=== PATIENT | male | born 1985 | race Caucasian/White ===

== ENCOUNTER 2018-09-26 07:57 | Emergency (ER) | payer SELFPAY ==
[~2018-09-26] VITALS: Wt 90.0 kg
[2018-09-26 08:00] VITALS: BP 141/87; PULSE 88; RESP 18
[2018-09-26] MEDS ORDERED: NAPR-985 PO (08:45)
[2018-09-26] MEDS ORDERED: SALI414L TOP (08:45)
--- NOTE | 2018-09-26 11:27 | ERD ---
ER Documentation Chief Complaint Chief Complaint right index wart/pain,cwp x 2 weeks HPI 33-year-old female presenting with wart pain. Patient is also complaining of chest wall pain. Patient has chest wall pain for 2 weeks. Patient states that it is constant. patient states that he has been using [id number] freeze medication on wart with no alleviation. He started using it yesterday. The wart has been there for over a year. He denies any pleuritic chest pain. Denies other medical problems. NKDA. Surgical history denies. Social history smokes pack a day. ROS All systems reviewed and are negative except as per history of present illness. Medications Home Meds Active Scripts Naproxen* (Naprosyn*) 500 Mg Tablet, 500 MG PO BID PRN for PAIN AND/OR INFLAM MATION, #30 TAB Prov:ALDAIR YOST PA-C 09/26/18 Salicylic Acid (Salicylic Acid) 414 Ml Lotion, 1 APPLIC TOP DAILY for 84 Days, BOTTLE Apply to affected area Prov:ALDAIR YOST PA-C 09/26/18 Allergies Allergies: Coded Allergies: No Known Allergy (Unverified , 09/16/11) PMhx/Soc Medical and Surgical Hx: pt denies Medical Hx, pt denies Surgical Hx History of Surgery: No Anesthesia Reaction: No Hx Neurological Disorder: No Hx Respiratory Disorders: No Hx Cardiac Disorders: No Hx Psychiatric Problems: No Hx Miscellaneous Medical Probl: No Hx Alcohol Use: Yes Hx Substance Use: No Hx Tobacco Use: Yes Smoking Status: Current every day smoker FmHx Family History: No diabetes, No coronary disease, No other Physical Exam Vitals Vital Signs Date Temp Pulse Resp B/P (MAP) Pulse Ox O2 O2 Flow FiO2 Time Delivery Rate 09/26/18 98.1 88 18 141/87 99 08:00 (105) Physical Exam GENERAL: The patient is well-appearing, well-nourished, in no acute distress HEENT: Atraumatic. Conjunctivae are pink. Pupils equal, round, and reactive to light. There is no scleral icterus. Tympanic membranes clear bilaterally. Oropharynx clear. No nystagmus or photophobia. NECK: C-spine is soft and supple. There is no meningismus. There is no cervical lymphadenopathy. CHEST: Clear to auscultation bilaterally. There are no rales, wheezes or rhonchi. HEART: Regular rate and rhythm. No murmurs, clicks, rubs or gallops. No S3 or S4. SKIN: Wart noted on the volar aspect of the right index finger. No surrounding erythema or fluctuance. Procedures/MDM EKG: Rate/Rhythm: 81 bpm Normal Sinus Rhythm QRS, ST, T-waves: No changes consistent w/ acute ischemia Impression: No evidence of ischemia or arrhythmia DIAGNOSTIC IMAGING REPORT Patient: HEMANTH EDEN : 1985 Age: 33 Sex: M MR #: [id number] DOS: 09/26/18 0821 Ordering MD: YASMIN YOST PA-C Location: [facility] Room/Bed: PROCEDURE: Chest x-ray CLINICAL INDICATION: Chest pain. TECHNIQUE: VIEWS: 1 COMPARISON: None. FINDINGS: SUPPORT DEVICES: None CARDIAC AND MEDIASTINAL SILHOUETTES: Magnified . LUNGS AND PLEURAL SPACE: Diminished lung volume . No infiltrates, consolidation, pulmonary edema or pleural effusion. PNEUMOTHORAX: None. OSSEOUS STRUCTURES: Unremarkable. IMPRESSION: 1. No acute pulmonary disease. MDM: 33-year-old male presenting with chest wall pain. Vitals and exam is non- concerning. X-ray is within normal area I do not feel that further blood blood work or imaging is indicated. A low suspicion for cardiac or pulmonary emergency. Patient does have a wart on his finger however patient will need to follow-up with primary care to have procedure to remove wart. Patient is discharged stricter precautions and told to follow-up with primary care. Patient is told symptoms change or worsen to return immediately to the ER. All questions answered at discharge Departure Diagnosis: Primary Impression: Chest pain Additional Impression: Wart Condition: Stable Patient Instructions: Chest Pain, Uncertain Cause, Warts, Non-Genital Additional Instructions: FOLLOW UP WITH YOUR PRIMARY CARE PHYSICIAN TOMORROW.Return to this facility if you are not improving as expected. ALDAIR YOST PA-C Sep 26, 2018 11:27
== END 2018-09-26 09:11 | disposition home or self-care (01) ==
LOC: FTE 07:57
DX: R07.9 Chest pain, unspecified (principal); F17.210 Nicotine dependence, cigarettes, uncomplicated; B07.9 Viral wart, unspecified
CPT/HCPCS: 71045; 93005